=== PATIENT | female | born 1980 | race Two or more races ===

== ENCOUNTER 2021-11-11 14:25 | Emergency (ER) | payer OTHER ==
[~2021-11-11] VITALS: Ht 160 cm; Wt 63.6 kg
[2021-11-11 14:27] VITALS: BP 150/72
== END 2021-11-11 16:07 | disposition left against medical advice (07) ==
LOC: ER 14:25 → EDBD 14:25 → ER 16:07
DX: R53.1 Weakness (principal); R55 Syncope and collapse; N93.9 Abnormal uterine and vaginal bleeding, unspecified; Z53.29 Procedure and treatment not carried out because of patient's decision for other reasons

== ENCOUNTER 2022-01-30 18:00 | Emergency (ER) | payer OTHER | END 2022-01-30 21:37 | disposition left against medical advice (07) | LOC: ER 18:00 | DX: R51.9 Headache, unspecified (principal); Z53.21 Procedure and treatment not carried out due to patient leaving prior to being seen by health care provider | CPT/HCPCS: 82962 ==

== ENCOUNTER 2023-03-15 14:41 | Inpatient (IN) | payer OTHER ==
[~2023-03-15] VITALS: Ht 157.5 cm; Wt 62.7 kg
[2023-03-15] MEDS ORDERED: SODIUM CHLORIDE 0.9% 1,900 ML IV ONE (15:45)
[2023-03-15 16:05] LABS: Basophils # (auto) 0 10 ^3/uL (0-0.2); Basophils % (auto) 0.2 % (0.0-2.0); Eosinophils # (auto) 0.3 10 ^3/uL (0-0.8); Lymphocytes # (auto) 1.1 10 ^3/uL (0.4-5.4); Monocytes # (auto) 0.2 10 ^3/uL (0-1.3); Monocytes % (auto) 2.3 % (0.0-12.0)
[2023-03-15 16:07] LABS: Eosinophils % (auto) 3.4 % (0.0-7.0); Hematocrit 36.3 % (36.0-46.0); Mean Corpuscular Hgb Conc. 30.3 g/dL (32.0-36.0); Mean Corpuscular Volume 65.9 fL (80.0-100.0); Neutrophils # (auto) 6.8 10 ^3/uL (1.6-8.6); Neutrophils % (auto) 81.1 % (37.0-80.0); Red Cell Distribution Width 18.6 % (11.8-14.3); White Blood Cell 8.4 10^3/uL (4.4-10.8)
[2023-03-15 16:19] LABS: Albumin 3.7 g/dL (3.2-4.8); Alkaline Phosphatase 140 U/L (46-116); Anion Gap 9 (5-15); Aspartate Aminotransferase 12 U/L (13-40); BUN/Creatinine Ratio 27.1 (10.0-20.0); Blood Urea Nitrogen 16 mg/dL (9-23); Calcium 8.7 mg/dL (8.7-10.4); Carbon Dioxide 25 mmol/L (20-30); Chloride 105 mmol/L (98-107); Glucose 104 mg/dL (74-106); Potassium 4.1 mmol/L (3.5-5.1); Sodium 139 mmol/L (136-145)
[2023-03-15 16:20] LABS: Bilirubin, Total 0.4 mg/dL (0.2-1.0); Total Protein 6.5 g/dL (5.7-8.2)
[2023-03-15 16:38] LABS: Alanine Aminotransferase 9 U/L (7-40)
[2023-03-15] MEDS ORDERED: SODIUM CHLORIDE 0.9% 1,000 ML IV ONE (16:45)
[2023-03-15] MEDS ORDERED: PROPRANOLOL HCL 20 MG TAB PO ONE (19:00)
[2023-03-15] MEDS ORDERED: SODIUM CHLORIDE 0.9% 1,000 ML IV SCH (19:30)
[2023-03-15] MEDS ORDERED: ONDANSETRON HCL 4 MG/2 ML VIAL IV PRN (19:30)
[2023-03-15] MEDS ORDERED: DOCUSATE SOD 100 MG CAP PO PRN (19:30)
[2023-03-15] MEDS ORDERED: NITROGLYCERIN 0.4 MG SL TAB SL PRN (19:30)
[2023-03-15] MEDS ORDERED: MORPHINE SULFATE INJ 2 MG/ml SYRG IV PRN (19:30)
[2023-03-15] MEDS ORDERED: ACETAMINOPHEN 325 MG TAB PO PRN (19:30)
[2023-03-15 19:33] VITALS: BP 123/83; PULSE 91; RESP 18; TEMP 98.3; O2SAT 95
[2023-03-16 11:42] LABS: Free T3 4.87 pg/mL (2.3-4.2)
[2023-03-16 11:43] LABS: Free T4 (Free Thyroxine) 1.81 ng/dL (0.89-1.76)
== END 2023-03-15 19:40 | disposition left against medical advice (07) | DRG 427 ==
LOC: EDBD 14:41 → ER 14:41 → TELE 19:21
PROVIDERS: ADMIT Nurse Practitioner Family; ATTEND Nurse Practitioner Family
DX: E05.90 Thyrotoxicosis, unspecified without thyrotoxic crisis or storm (principal); E86.0 Dehydration; R00.2 Palpitations; M19.90 Unspecified osteoarthritis, unspecified site; R00.0 Tachycardia, unspecified; Z83.3 Family history of diabetes mellitus; Z53.29 Procedure and treatment not carried out because of patient's decision for other reasons
CPT/HCPCS: 36415; 71045; 80053; 83605; 84439; 84443; 84481; 84484; 85025; 87040; 93005; G0378